=== PATIENT | female | born 1960 | race Two or more races ===

== ENCOUNTER 2020-02-28 11:37 | Emergency (ER) | payer OTHER ==
[~2020-02-28] VITALS: Ht 157.5 cm; Wt 61.2 kg
--- NOTE | 2020-02-28 11:48 | NUR ---
urine collected and sent to lab
--- NOTE | 2020-02-28 11:48 | NUR ---
patient came in to the er c/o dysuria and burning sensation when urinating x 15 days. On room air, breathing evenly and unlabored. kept comfortable, will continue to monitor accordingly.
[2020-02-28 11:53] LABS: APPEARANCE,URINE Turbid (CLEAR); BILIRUBIN,URINE Negative (NEGATIVE); BLOOD, URINE Trace-lysed Ery/uL (NEGATIVE); COLOR,URINE Yellow (YELLOW); KETONES,URINE Negative (NEGATIVE); LEUKOCYTE ESTERASE ,URINE Large (NEGATIVE); NITRITE, URINE Negative (NEGATIVE); PH,URINE 5.5 (5.0-8.0); PROTEIN,URINE Negative (NEGATIVE); UGLUCOSE Negative (NEGATIVE); UROBILINOGEN,URINE 0.2 EU/dL (0.2)
[2020-02-28 12:06] LABS: RBC,URINE 0-2 /HPF (0-2); WBC,URINE TOO NUMEROUS TO COUN /HPF (0-3)
[2020-02-28 12:07] LABS: BACTERIA,URINE Many /HPF (None Seen); SQUAMOUS EPITHELIAL CELL,UR Few /HPF (None Seen)
[2020-02-28 12:12] VITALS: BP 154/89
--- NOTE | 2020-02-28 12:12 | NUR ---
Patient discharged to home in stable condition. Written and verbal after care instructions given. Patient verbalizes understanding of instruction. Pt ambulatory with a steady gait
== END 2020-02-28 12:13 | disposition home or self-care (01) ==
LOC: ER 11:43
DX: N39.0 Urinary tract infection, site not specified (principal); E03.9 Hypothyroidism, unspecified
CPT/HCPCS: 81000-TC; 87086-TC; 87186-TC